=== PATIENT | male | born 1945 | race Caucasian/White ===

== ENCOUNTER 2022-07-15 17:35 | Observation (INO) ==
[2022-07-15] MEDS ORDERED: Iodixanol (CONTRAST) 320 MG/ML 100 ML SDV IV ONE (17:57)
[2022-07-15 17:59] LABS: ABS Eosinophils 0.2 10^3/ul (0-0.6); ABS Lymphocytes 2.3 10^3/ul (1.0-4.8); ABS Monocytes 0.8 10^3/ul (0-0.8); Eosinophil % 1.9 %; Hematocrit 42 % (42-52); Hemoglobin 14.2 g/dL (14.0-18.0); Lymphocyte % 24.7 %; Mean Corpuscular HGB Conc 34 g/dL (31-36); Mean Corpuscular Hemoglobin 32 pg (27-31); Mean Corpuscular Volume 96 fL (80-94); Mean Platelet Volume 9.5 fL (7.4-10.4); Nucleated Red Blood Cells % 0.1; Platelet Count 195 10^3/uL (150-450); Red Blood Count 4.39 10^6 /uL (4.18-5.48); Red Cell Distribution Width 13 % (10-15); White Blood Count 9.4 10^3/uL (3.5-10.8)
[2022-07-15 18:24] LABS: Activated Partial Thrombo Time 31.1 seconds (26.0-38.0); INR 1.18 (0.88-1.18)
[2022-07-15 18:36] LABS: ALT 18 U/L (7-52); Albumin 3.9 g/dL (3.2-5.2); Albumin/Globulin Ratio 1.1 (1-3); Alkaline Phosphatase 84 U/L (35-149); Blood Urea Nitrogen 23 mg/dL (6-24); CO2 Carbon Dioxide 26 mmol/L (22-32); Calcium 9.4 mg/dL (8.6-10.3); Chloride 104 mmol/L (101-111); Cholesterol 175 mg/dL; Creatinine, Serum 0.91 mg/dL (0.67-1.17); Globulin 3.6 g/dL (2-4); Glucose 106 mg/dL (70-100); HDL Cholesterol 33.6 mg/dL; LDL Cholesterol 107 mg/dL; Sodium 134 mmol/L (135-145); Total Protein 7.5 g/dL (6.4-8.9); Triglycerides 170 mg/dL; eGFR CKD-EPI 87.3 (>60)
[2022-07-15 18:43] LABS: Anion Gap 4 mmol/L (2-11)
[2022-07-15 21:10] LABS: Urine Appearance Clear; Urine Bilirubin Negative (Negative); Urine Blood Negative (Negative); Urine Color Yellow; Urine Glucose Negative (Negative); Urine Ketones Negative (Negative); Urine Nitrite Negative (Negative); Urine Protein Negative (Negative); Urine Specific Gravity 1.055 (1.002-1.030); Urine Urobilinogen Negative (Negative)
[2022-07-16] MEDS: Enoxaparin 40 MG/0.4 ML SYR SUBCUT SCH ×2 (01:49→20:35)
[2022-07-16 03:03] LABS: Potassium Redraw 3.9 mmol/L (3.5-5.0)
[2022-07-16 07:01] LABS: Calcium 9.4 mg/dL (8.6-10.3); Creatinine, Serum 0.87 mg/dL (0.67-1.17); HDL Cholesterol 34.8 mg/dL; Potassium 3.8 mmol/L (3.5-5.0); eGFR CKD-EPI 89.4 (>60)
[2022-07-16 07:17] LABS: TSH Ultra Thyroid Stim Horm 2.78 mcIU/mL (0.34-5.60)
[2022-07-16] MEDS ORDERED: Aspirin EC 325 mg TAB.EC PO SCH (09:00)
[2022-07-16] MEDS: Aspirin EC 81 mg TAB.EC (enteric coated) PO SCH (09:09)
[2022-07-17] MEDS: Aspirin EC 81 mg TAB.EC (enteric coated) PO SCH (09:31)
[2022-07-17 09:54] VITALS: BP 138/70
== END 2022-07-17 13:40 | disposition home or self-care (01) ==
LOC: ED 17:35 → EDHOLD 17:35 → SUATTDRO 22:14 → MEDTELE 07-16 01:18
PROVIDERS: ADMIT Internal Medicine; ATTEND Student in an Organized Health Care Education/Training Program

== ENCOUNTER 2022-12-13 19:16 | Inpatient (IN) ==
[2022-12-13 19:55] LABS: ABS Eosinophils 0.1 10^3/uL (0.0-0.5); ABS Lymphocytes 1.6 10^3/uL (1.0-4.8); ABS Neutrophils 8.7 10^3/uL (1.5-7.6); ABS Nucleated RBC 0.01 10^3/ul; Eosinophil % 0.7 %; Hemoglobin 10.1 g/dL (13.2-16.3); Lymphocyte % 14.3 %; Mean Corpuscular Hemoglobin 33.2 pg (27-33); Mean Corpuscular Hgb Conc 34.7 g/dL (31-36); Mean Corpuscular Volume 95.8 fL (80-97); Nucleated Red Blood Cells % 0.1 /100 WBC (0.0-0.4); Platelet Count 293 10^3/uL (150-450); Red Blood Count 3.03 10^6/uL (4.06-5.63); Red Cell Distribution Width 12.7 % (12-17); White Blood Count 11.4 10^3/uL (3.6-10.2)
[2022-12-13 20:10] LABS: Albumin 3.3 g/dL (3.2-5.2); Albumin/Globulin Ratio 0.7 (1-3); Calcium 9.8 mg/dL (8.6-10.3); Creatinine, Serum 5.77 mg/dL (0.67-1.17); Globulin 4.5 g/dL (2-4); Magnesium 2.1 mg/dL (1.9-2.7); Potassium 4.5 mmol/L (3.5-5.0); Total Bilirubin 0.7 mg/dL (0.2-1.0); Total Protein 7.8 g/dL (6.4-8.9); eGFR CKD-EPI 9.5 (>60)
[2022-12-13] MEDS ORDERED: Lidocaine 2% JELLY 6 ML Topical TOPICAL ONE (21:24)
[2022-12-13 22:13] LABS: Urine Appearance Clear; Urine Bilirubin Negative (Negative); Urine Blood 2+ (Negative); Urine Color Yellow; Urine Glucose Negative (Negative); Urine Ketones Negative (Negative); Urine Nitrite Negative (Negative); Urine Protein Negative (Negative); Urine Specific Gravity 1.008 (1.002-1.030); Urine Urobilinogen Negative (Negative)
[2022-12-13 22:22] LABS: Urine Bacteria 1+ (Absent); Urine Red Blood Cell 2+(6-10/hpf) (Absent); Urine White Blood Cell Trace(0-5/hpf) (Absent)
[2022-12-14] MEDS: NS 0.9% 1000 ml BAG 1,000 ML IV SCH ×2 (02:35→05:00)
[2022-12-14 02:57] LABS: Blood Urea Nitrogen 58 mg/dL (6-24); CO2 Carbon Dioxide 28 mmol/L (22-32); Calcium 9.5 mg/dL (8.6-10.3); Chloride 101 mmol/L (101-111); Creatinine, Serum 3.89 mg/dL (0.67-1.17); Glucose 103 mg/dL (70-100); Sodium 135 mmol/L (135-145); eGFR CKD-EPI 15.3 (>60)
[2022-12-14 03:05] LABS: Anion Gap 6 mmol/L (2-16)
[2022-12-14 05:33] LABS: ABS Eosinophils 0.1 10^3/uL (0.0-0.5); ABS Lymphocytes 1.8 10^3/uL (1.0-4.8); ABS Monocytes 0.7 10^3/uL (0.0-1.1); ABS Neutrophils 5.9 10^3/uL (1.5-7.6); ABS Nucleated RBC 0.01 10^3/ul; Eosinophil % 0.8 %; Hematocrit 26.7 % (38-53); Hemoglobin 9.6 g/dL (13.2-16.3); Lymphocyte % 20.9 %; Mean Corpuscular Hemoglobin 33.9 pg (27-33); Mean Corpuscular Hgb Conc 35.9 g/dL (31-36); Mean Corpuscular Volume 94.3 fL (80-97); Mean Platelet Volume 8.8 fL (7.5-11.2); Nucleated Red Blood Cells % 0.1 /100 WBC (0.0-0.4); Platelet Count 292 10^3/uL (150-450); Red Blood Count 2.83 10^6/uL (4.06-5.63); Red Cell Distribution Width 12.9 % (12-17); White Blood Count 8.5 10^3/uL (3.6-10.2)
[2022-12-14 05:50] LABS: Calcium 10.3 mg/dL (8.6-10.3); Creatinine, Serum 3.23 mg/dL (0.67-1.17); Magnesium 2.1 mg/dL (1.9-2.7); Potassium 4.2 mmol/L (3.5-5.0); eGFR CKD-EPI 19.1 (>60)
[2022-12-14 06:05] LABS: PSA Screen Ultra Sensitive 38.696 ng/mL (0-4.000)
[2022-12-14 06:13] LABS: Ferritin 298.1 ng/mL (24-336)
[2022-12-14] MEDS ORDERED: Fluticasone NASAL SPRAY 50MCG 16 gm SPRAY BTL BOTH NARES ONE (08:27)
[2022-12-14] MEDS: Aspirin EC 81 mg TAB.EC (enteric coated) PO SCH (08:38)
[2022-12-14] MEDS ORDERED: NS 0.45% 1000 ml BAG 1,000 ML IV SCH ×2 (19:00→19:48)
[2022-12-14 23:00] LABS: Osmolality Serum 301 mOsm/kg (275-295)
[2022-12-15 06:27] LABS: Hematocrit 26.8 % (38-53); Hemoglobin 9.4 g/dL (13.2-16.3); Mean Corpuscular Hemoglobin 33.5 pg (27-33); Mean Corpuscular Volume 95.9 fL (80-97); Platelet Count 252 10^3/uL (150-450); Red Cell Distribution Width 12.9 % (12-17); White Blood Count 9.6 10^3/uL (3.6-10.2)
[2022-12-15 06:41] LABS: Calcium 9.3 mg/dL (8.6-10.3); Creatinine, Serum 1.13 mg/dL (0.67-1.17); Potassium 3.8 mmol/L (3.5-5.0); eGFR CKD-EPI 67.4 (>60)
[2022-12-15] MEDS ORDERED: NS 0.45% 1000 ml BAG 1,000 ML IV SCH (08:00)
[2022-12-15] MEDS: Aspirin EC 81 mg TAB.EC (enteric coated) PO SCH (08:31)
[2022-12-15 12:53] LABS: Urine Creatinine Concentration 36.39 mg/dL (20.00-370.00)
[2022-12-15 13:34] LABS: Urine Osmo 295 mOsm/kg (150-1150)
[2022-12-15 14:12] VITALS: BP 109/65
[2022-12-16] MEDS ORDERED: Fluticasone NASAL SPRAY 50MCG 16 gm SPRAY BTL BOTH NARES SCH (09:00)
[2022-12-16 13:59] LABS: Kappa Free Light Chain 6.23 mg/dL; Lambda Free Light Chain, S 4.62 mg/dL
[2022-12-19 12:51] LABS: Urine Kappa Total Light Chain 3.27 mg/dL (<0.9000); Urine Kappa/Lambda Light Chain 2.3; Urine Lambda Total Light Chain 1.42 mg/dL (<0.7000)
== END 2022-12-15 17:05 | disposition home or self-care (01) | DRG 683 ==
LOC: ED 19:16 → SUATTDRO 23:58 → EDHOLD 23:58 → MED 12-14 19:45
PROVIDERS: ADMIT Internal Medicine; ATTEND Internal Medicine